=== PATIENT | female | born 1975 | race Caucasian/White ===

== ENCOUNTER 2021-10-01 09:53 | Outpatient (REF) | payer MEDICAID, SELFPAY ==
--- NOTE | ~2021-10-01 | MM_ITS ---
EXAMINATION: MM SCREENING DIGITAL BREAST TOMOSYNTHESIS, BILATERAL CLINICAL INFORMATION: Screening. Asymptomatic. Left stereotactic biopsy performed by Dr. Strickland on 09/09/2016. The lifetime risk of breast cancer based on the Tyrer-Cuzick Model is 7%. COMPARISON: Mammography: 02/11/2018, 09/09/2016, 08/06/2016, 07/06/2016 TECHNIQUE: Digital breast tomosynthesis is performed in both the craniocaudal and mediolateral oblique views along with computer-aided detection (CAD). Synthesized 2D images are generated from the tomosynthesis. FINDINGS: The breasts are heterogeneously dense, which may obscure small masses (ACR BI-RADS breast composition Category c). There are no significant masses, abnormal calcifications, or other abnormalities. Parenchymal pattern is similar to prior studies. There is biopsy clip marker again noted central 12:30 o'clock left breast mid depth. There are scattered punctate similar appearing round calcifications in both breasts. There are no significant changes. MM/MM tomosynthesis screening BI IMPRESSION: No mammographic evidence of malignancy. ASSESSMENT: BI-RADS 2: Benign RECOMMENDATION: Routine annual mammography screening. This patient's information was entered into a reminder system with a target due date for their next mammogram.
== END 2021-10-01 09:54 | disposition home or self-care (01) ==
LOC: HO.MAMMO 09:53
PROVIDERS: PCP General Practice; Visit Provider General Practice
DX: Z12.31 Encounter for screening mammogram for malignant neoplasm of breast (principal)
CPT/HCPCS: 77063; 77067

== ENCOUNTER 2024-01-18 10:57 | Outpatient (REF) | payer MEDICAID, SELFPAY ==
[2024-01-18 12:39] LABS: Alanine Aminotransferase 20 U/L (0-31); Albumin Level 3.9 g/dL (3.5-5.0); Alkaline Phosphatase 112 U/L (39-117); Anion Gap 12 (12-20); Aspartate Amino Transferase 19 U/L (5-31); Bilirubin Total 0.7 mg/dL (0.0-1.0); Blood Urea Nitrogen 12 mg/dL (9-16); Calcium 9.2 mg/dL (8.4-10.2); Carbon Dioxide 26 mmol/L (22-29); Chloride 105 mmol/L (96-108); Cholesterol 218 mg/dL (<200); Estimated Glomerular Filt Rate > 60; Glucose Random 93 mg/dL (60-115); HDL Cholesterol 48 mg/dL (>40); LDL Cholesterol Calculated 148 mg/dL (<100); Potassium 3.8 mmol/L (3.3-5.1); Sodium 139 mmol/L (135-145); Total Protein 8.4 g/dL (6.5-8.0); Triglycerides 112 mg/dL (<150)
[2024-01-18 12:40] LABS: Estimated Average Glucose 105 mg/dL; Hemoglobin A1c % 5.3 % (<6.0)
== END 2024-01-18 10:58 | disposition home or self-care (01) ==
LOC: HO.HHCL 10:57
PROVIDERS: Visit Provider General Practice
DX: E78.49 Other hyperlipidemia (principal)
CPT/HCPCS: 36415; 80053; 80061; 83036

== ENCOUNTER 2025-03-25 14:59 | Emergency (ER) | payer MEDICAID, SELFPAY ==
[2025-03-25 15:10] VITALS: BP 122/57; PULSE 79; RESP 18; TEMP 36.2; O2SAT 95; BMI 25.9
--- NOTE | 2025-03-25 15:19 | ED_ITS ---
HPI - General Adult General Chief complaint: Extremity Problem Stated complaint: Ingrown toe nail Time Seen by Provider: 03/25/25 16:57 History of Present Illness ED Provider: Chuck Sharma MD HPI narrative: 49-year-old female who only has complaint of an abnormal appearance with some mild discomfort chronically of the right big toenail no trauma no fever no skin color changes Related Data Previous Rx's ?Medication ?Instructions ?Recorded efinaconazole 10 % topical 1 appl topical DAILY 48 wee ks #8 mL 03/25/25 solution with applicator Allergies Allergy/AdvReac Type Severity Reaction Status Date / Time aspirin (ASA) Allergy Unknown RASH, Unverified 03/25/25 15:12 itching penicillin V Allergy Unknown itching Verified 03/25/25 15:12 PMFSH Social History Social History Smoked in Last 30 Days: No Use of substances other than those prescribed or required for medical reasons: No Advance Directives: No Advance Directives Information Provided: No Physical Exam ED Exam Exam: GENERAL: Well appearing. No apparent distress. Alert. HEAD/NECK: No visual trauma. EYES: Normal to inspection. No conjunctival erythema. No discharge. ENMT: Hearing grossly normal. External nose normal. RESPIRATORY: Respiratory effort normal. CARDIOVASCULAR: Additional details (Grossly well perfused). SKIN: No jaundice. NEUROLOGICAL: Alert. Moving all extremities x4. Additional details (No gross motor deficits. Normal tone. ). PSYCHIATRIC: Alert. Appearance appropriate for situation. Right big toenail with clear chronic appearing thickened onychomycosis Vital Signs: Vital Signs - 24 hr 03/25/25 15:10 03/25/25 17:04 03/25/25 18:50 Temperature 97.2 F 0 F L Pulse Rate 79 67 62 Respiratory Rate 18 18 16 Blood Pressure 122/57 L 114/68 116/64 Pulse Oximetry 95 96 96 Oxygen Delivery Method Room Air Room Air Room Air BMI result Body Mass Index 25.9 Course Course Course Narrative: RME, this is a rapid medical exam performed by Toni Conklin please refer to primary provider for complete H&P- 49-year-old female presents for evaluation of left great toe pain. She believes she has an ingrown toenail after having her nails done with a salon. There is minimal edema, no significant erythema to the left great toe around the nail plate Medical Decision Making Medical Decision Making MDM Narrative: Medical Decision Makin-year-old female with right big toe onychomycosis. No traumatic injury bony tenderness redness or indication for any additional testing or imaging. I discussed that this is likely a chronic fungal infection with her and that we can initiate topical antifungals what she may need treatment beyond that with her PCP she understands this. Preliminary Favored Differential Diagnosis: Onychomycosis among additional considered etiologies Testing Interpreted Independently: ?See below for details Radiology or Lab testing Results Reviewed: ?See below for details Consults: ?See below for details Independent Historians/External Chart Reviews: ?See below for details Social Determinants of Health Impacting MDM/Planning: ?See below for details Discharge Plan Discharge Clinical Impression: Onychomycosis Patient Disposition: Home, Self-Care Instructions: Skin Yeast Infection (ED) Additional Instructions: Start the medication that we have prescribed. Call your primary doctor you may need additional topical treatment or oral medications to fully treat this Prescriptions: New efinaconazole 10 % solution with applicator 1 appl topical DAILY 336 Days Qty: 8 0RF Interventions: ED Discharge Assessment Last Done: 03/25/25 18:50 Discharge Date/Time: 03/25/25 18:50 Print Language: Burkinan
[2025-03-25 17:04] VITALS: BP 114/68; PULSE 67; RESP 18; O2SAT 96
[2025-03-25 18:50] VITALS: BP 116/64; PULSE 62; RESP 16; TEMP -17.7; TEMP 0; O2SAT 96
== END 2025-03-25 18:50 | disposition home or self-care (01) ==
PROVIDERS: Emergency Provider Emergency Medicine
DX: B35.1 Tinea unguium (principal); M79.674 Pain in right toe(s)
CPT/HCPCS: 99283; 99284

== ENCOUNTER 2025-05-10 10:30 | Outpatient (REF) | payer MEDICAID, SELFPAY ==
[2025-05-10 11:04] LABS: MANUAL DIFF FLAG NO
[2025-05-10 11:45] LABS: Hematocrit 43.1 % (37.0-47.0); Hemoglobin 14.0 g/dl (12.0-16.0); Imm Gran Abs Auto 0.02 X10*3/uL (0.00-0.03); Imm Gran Pct Auto 0.2 % (0.0-0.4); Lymphocytes Absolute Auto 2.1 X10*3/uL (1.2-4.9); Mean Corpuscular HGB Conc 32.5 g/dl (31.0-35.0); Mean Corpuscular Hemoglobin 30.6 pg (27.0-33.0); Mean Corpuscular Volume 94.3 fL (80.0-98.0); NRBC Abs Auto 0.000 X10*3/uL (0.0-0.012); NRBC Pct Auto 0.0 /100WBC (0.0-0.2); Platelet Count 292 X10*3/uL (160-400); Red Blood Count 4.57 X10*6/uL (4.20-5.50); White Blood Count 8.1 X10*3/uL (4.8-10.8)
[2025-05-10 14:28] LABS: Alanine Aminotransferase 29 U/L (0-31); Albumin Level 4.3 g/dL (3.5-5.0); Alkaline Phosphatase 130 U/L (39-117); Anion Gap 11 (12-20); Aspartate Amino Transferase 22 U/L (5-31); Blood Urea Nitrogen 11 mg/dL (9-16); Calcium 9.6 mg/dL (8.4-10.2); Carbon Dioxide 30 mmol/L (22-29); Chloride 106 mmol/L (96-108); Cholesterol 226 mg/dL (<200); Estimated Glomerular Filt Rate > 60; HDL Cholesterol 42 mg/dL (>40); Potassium 4.9 mmol/L (3.3-5.1); Sodium 142 mmol/L (135-145); Total Protein 7.8 g/dL (6.5-8.0); Triglycerides 110 mg/dL (<150)
[2025-05-10 14:35] LABS: HBS Num1 12.06 mIU/mL (0-7.99); HBc Num1 0.30 S/CO (0.00-0.79); HBsAGNum1 0.59 S/CO (0.00-0.99); Hepatitis B Surface Antigen Negative (Negative); ~Hepatitis B Surface Antibody REACTIVE (Nonreactive)
[2025-05-10 15:47] LABS: CT PCR Urine NOT DETECTED (Not Detect.); NG PCR Urine NOT DETECTED (Not Detect.)
== END 2025-05-10 10:31 | disposition home or self-care (01) ==
LOC: HO.HHCL 10:30
PROVIDERS: PCP Internal Medicine; Visit Provider Nurse Practitioner Family
DX: Z00.00 Encounter for general adult medical examination without abnormal findings (principal); Z11.3 Encounter for screening for infections with a predominantly sexual mode of transmission
CPT/HCPCS: 80053; 80061; 85025; 86704; 86706; 87340; 87491; 87591